=== PATIENT | male | born 1950 | race Caucasian/White ===

== ENCOUNTER 2017-08-25 09:51 | Emergency (ER) | payer OTHER ==
[2017-08-25 10:36] LABS: Absolute Lymphocytes (CBC) 1.9 K/uL (0.7-4.9); Absolute Monocytes 0.8 K/uL (0.1-1.3); Absolute Neutrophil 5.8 K/uL (1.8-8.0); Basophils % 0.6 % (0-1.3); Eosinophils % 2.3 % (0-4.4); Hematocrit 42.3 % (39.6-49.0); Lymphocytes % 21.9 % (15.3-44.8); MCH 32.9 pg (27.0-35.0); MPV 7.6 fL (7.6-11.3); Monocytes % 8.6 % (3.3-12.3)
[2017-08-25 10:39] LABS: Protime INR 0.97
[2017-08-25 10:46] LABS: Bicarbonate 25 mEq/L (21-31); Glucose Level 113 mg/dL (65-120); Potassium 4.3 mEq/L (3.6-5.0); Sodium Level 137 mEq/L (135-145)
[2017-08-25 10:52] LABS: ALT/SGPT 27 IU/L (10-60); AST/SGOT 32 IU/L (10-42); Alkaline Phosphatase 75 IU/L (42-121); BUN Blood Urea Nitrogen 13 mg/dL (6-20); Bilirubin Direct 0.2 mg/dL (0-0.2); Bilirubin Total 1.5 mg/dL (0.3-1.2); Creatine Phosphokinase 306 IU/L (22-269); Glomerular Filtration Rate > 90 mL/min (=/>90); Protein, Total 7.7 g/dL (6.0-8.3)
--- NOTE | 2017-08-25 10:52 | RAD REPORT ---
EXAM DESCRIPTION: RAD - Chest Single View - 08/25/2017 10:33 am CLINICAL HISTORY: Chest pain, chest pressure COMPARISON: None. TECHNIQUE: AP portable chest image was obtained 1029 hours . FINDINGS: Lungs are underinflated. Patient has a mild prominence of the interstitial markings suspec yair to be baseline. No failure, volume overload or pulmonary edema pattern. A focal infiltrate or mas s not seen. Trachea is midline. Heart and vasculature are normal. No measurable pleural effusion and no pneumothorax. Left shoulder degenerative changes are present. No gross abnormality seen on limited bony assessment. No acute aortic findings suspected. IMPRESSION: No pulmonary edema, infiltrate or other acute cardiopulmonary finding.
[2017-08-25 10:54] LABS: CKMB Creatine Kinase MB 4.8 ng/ml (0.3-4.0)
[2017-08-25] MEDS ORDERED: MORPHINE 4 MG/ML SYR ONE (11:19)
[2017-08-25] MEDS ORDERED: NA CHLORIDE 0.9% 1,000 ML ONE (11:19)
[2017-08-25] MEDS ORDERED: ONDANSETRON 4 MG/2 ML VIAL ONE (11:19)
[2017-08-25] MEDS ORDERED: HYDRALAZINE HCL 20 MG/ML VIAL ONE (11:19)
[2017-08-25 13:35] LABS: CKMB Creatine Kinase MB 4.5 ng/ml (0.3-4.0)
--- NOTE | 2017-08-25 13:43 | ER ---
Nurse's Notes [facility] Name: Luís Smith Age: 66 yrs Sex: Male : 1950 Arrival Date: 08/25/2017 Time: 09:55 Bed 16 Private MD: Diagnosis: Chest pain, unspecified;Essential (primary) hypertension Presentation: 08/25 09:55 Presenting complaint: EMS states: was called at [facility] for a pt with complaints of hj chest pain, pressure, heavy pain 7/10 for 2 days; denies SOB; denies radiating pain; BP- 197/128; BG- 102; EMS gave aspirin 81 mg x 4; nitro x 2 last dose was 9:40am; A\T\Ox4;. Transition of care: patient was received from another setting of care (ambulatory primary care physician practice), from [facility];. Onset of symptoms was August 25, 2017. Care prior to arrival: None. 09:55 Method Of Arrival: EMS: [facility] hj 09:55 Acuity: CLARISSA 3 hj 10:04 Note after 2 doses of nitro BP- 182/100; pain 4/10. hj Triage Assessment: 10:00 General: Appears in no apparent distress. uncomfortable, Behavior is calm, cooperative, hj appropriate for age. Pain: Complains of pain in chest. Cardiovascular: Reports chest pain, Heart tones S1 S2 present Capillary refill < 3 seconds Patient's skin is warm and dry. Historical: - Allergies: 10:00 No Known Allergies; hj - Home Meds: 10:00 losartan 100 mg oral tab 1 tab once daily [Active]; fluoxetine 20 mg Oral cap 1 cap hj once daily [Active]; - PMHx: 10:00 Depression; Hypertension; Hyperlipidemia; BPH; hj - PSHx: 10:00 neck; back; arm; hj - Immunization history:: Adult Immunizations not up to date. - Social history:: Smoking status: Patient uses tobacco products, Patient/guardian denies using alcohol. - Family history:: not pertinent. - Hospitalizations: : No recent hospitalization is reported. - History obtained from: EMS. Screenin:00 Abuse screen: Denies threats or abuse. Denies injuries from another. Nutritional hj screening: No deficits noted. Tuberculosis screening: No symptoms or risk factors identified. Fall Risk None identified. Assessment: 10:02 Pain: Pain does not radiate. Pain began 1 day ago. hj 10:12 General: Appears in no apparent distress. uncomfortable, Behavior is calm, cooperative, aj1 appropriate for age. Pain: Complains of pain in anterior aspect of left upper chest Pain does not radiate. Pain currently is 5 out of 10 on a pain scale. Quality of pain is described as pressure, Pain began 1 day ago. Is continuous. Neuro: Level of Consciousness is awake, alert, obeys commands, Oriented to person, place, time, situation, Speech is normal, Facial symmetry appears normal. Cardiovascular: Reports chest pain, fatigue, shortness of breath, Denies diaphoresis, lightheadedness, nausea, palpitations, syncope, vomiting, Heart tones S1 S2 present Patient's skin is warm and dry. Rhythm is regular Chest pain is described as Pain is 5 out of 10 on a pain scale. quality is pressure, is located in left anterior chest wall began 1 day ago. Respiratory: Reports shortness of breath Airway is patent Respiratory effort is even, unlabored, Respiratory pattern is regular, symmetrical, Breath sounds are clear bilaterally. GI: No signs and/or symptoms were reported involving the gastrointestinal system. : No signs and/or symptoms were reported regarding the genitourinary system. EENT: No signs and/or symptoms were reported regarding the EENT system. Derm: No signs and/or symptoms reported regarding the dermatologic system. Skin is pink, warm \T\ dry. normal. Musculoskeletal: No signs and/or symptoms reported regarding the musculoskeletal system. Circulation, motion, and sensation intact. 11:22 Reassessment: Patient appears in no apparent distress at this time. No changes from aj1 previously documented assessment. Patient and/or family updated on plan of care and expected duration. Pain level reassessed. Patient is alert, oriented x 3, equal unlabored respirations, skin warm/dry/pink. 12:00 Reassessment: Patient and/or family updated on plan of care and expected duration. Pain aj1 level reassessed. General: Appears in no apparent distress. comfortable, Behavior is calm, cooperative, appropriate for age. Neuro: Level of Consciousness is awake, alert, obeys commands, Oriented to person, place, time, situation, Speech is normal, Facial symmetry appears normal. Cardiovascular: Heart tones S1 S2 present Patient's skin is warm and dry. Rhythm is regular. Respiratory: Airway is patent Respiratory effort is even, unlabored, Respiratory pattern is regular, symmetrical. Derm: Skin is pink, warm \T\ dry. normal. Musculoskeletal: Circulation, motion, and sensation intact. 13:09 Reassessment: Patient appears in no apparent distress at this time. No changes from aj1 previously documented assessment. Patient and/or family updated on plan of care and expected duration. Pain level reassessed. Patient is alert, oriented x 3, equal unlabored respirations, skin warm/dry/pink. 14:21 Reassessment: Patient appears in no apparent distress at this time. No changes from aj1 previously documented assessment. Patient and/or family updated on plan of care and expected duration. Pain level reassessed. Patient is alert, oriented x 3, equal unlabored respirations, skin warm/dry/pink. Vital Signs: 10:03 BP 185 / 113; Pulse 81; Resp 18; Temp 98.1(TE); Pulse Ox 97% on R/A; Weight 92.53 kg; hj Height 6 ft. 0 in. (182.88 cm); Pain 4/10; 11:21 BP 165 / 85; Pulse 78; Resp 18; Pulse Ox 96% on R/A; aj1 12:00 BP 159 / 85; Pulse 79; Resp 13; Pulse Ox 97% ; aj1 13:09 BP 162 / 88; Pulse 79; Resp 14; Pulse Ox 98% ; aj1 14:22 BP 158 / 89; Pulse 82; Resp 18; Pulse Ox 99% ; aj1 10:03 Body Mass Index 27.67 (92.53 kg, 182.88 cm) ED Course: 09:55 Patient arrived in ED. hj 09:57 Triage completed. hj 10:01 Nani Hernandez FNP is PHCP. kav 10:01 Gino Bullard MD is Attending Physician. kav 10:02 Arm band placed on right wrist. hj 10:02 Patient has correct armband on for positive identification. Placed in gown. Bed in low hj position. Call light in reach. Side rails up X 1. 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 Pulse ox on. NIBP on. 10:03 Patient maintains SpO2 saturation greater than 95% on room air. hj 10:10 Rosie Pollock RN is Primary Nurse. aj1 10:12 No provider procedures requiring assistance completed. Initial lab(s) drawn, by oh, aj1 sent to lab. EKG done, by eeg technician. Inserted saline lock: 20 gauge in right forearm, using aseptic technique. Blood collected. 10:15 IV EMS IV 20 g to right wrist, flushed with NS IV infiltrated, IV dc'd pressure held to aj1 site and then site covered with 4x4 and secured with tape. Catheter intact, patient tolerated well. 11:58 EKG done, by eeg technician. reviewed by Gino Bullard MD. tc 13:41 Shan Taveras MD is Referral Physician. kav 14:22 IV discontinued, intact, bleeding controlled, No redness/swelling at site. Pressure aj1 dressing applied. Administered Medications: 11:12 Drug: hydrALAZINE 10 mg {Note: BP prior to administration 175/103.} Route: IV; Rate: aj1 bolus; Site: right forearm; 14:23 Follow up: IV Status: Completed infusion aj1 11:13 Drug: morphine 4 mg Route: IVP; Site: right forearm; aj1 14:24 Follow up: Response: No adverse reaction aj1 11:13 Drug: Zofran 4 mg Route: IVP; Site: right forearm; aj1 14:24 Follow up: Response: No adverse reaction aj1 11:14 Drug: NS 0.9% 1000 ml Route: IV; Rate: 1 bolus; Site: right forearm; aj1 14:24 Follow up: IV Status: Completed infusion; IV Intake: 1000ml aj1 Intake: 14:24 IV: 1000ml; Total: 1000ml. aj1 Outcome: 13:42 Discharge ordered by . kav 14:22 Discharged to home ambulatory. aj1 14:22 Condition: good 14:22 Discharge instructions given to patient, Instructed on discharge instructions, follow up and referral plans. medication usage, Demonstrated understanding of instructions, follow-up care, medications, Prescriptions given X 1. 14:25 Patient left the ED. aj1 Signatures: Rosie Pollock, RN RN aj1 Nani Hernandez, NEMATOLOGIST NEMATOLOGIST Ruth Ann Morales, media intern EKG Ttc Amando Vidal, RN RN hj
--- NOTE | 2017-08-25 13:43 | EDPHYS ---
Physician Documentation [facility] Name: Luís Smith Age: 66 yrs Sex: Male : 1950 Arrival Date: 08/25/2017 Time: 09:55 Bed 16 Private MD: ED Physician Gino Tovar HPI: 08/25 10:39 This 66 yrs old Male presents to ER via EMS with complaints of Chest Pain. kav 10:39 Onset: The symptoms/episode began/occurred acutely, just prior to arrival, 1 day(s) kav ago, and became worse just prior to arrival. Modifying factors: The patient symptoms are alleviated by nothing, the patient symptoms are aggravated by nothing. The patient has not experienced similar symptoms in the past. The patient has not recently seen a physician. patient reports that chest pain began yesterday 08/24/17. reports pain as a "..heavy, constant pressure". chest pain rated at 6/10. pain radiates behind left shoulder. chest pain began with activity. denies n/v/d, dizziness/vertigo, headache. former smoker. pmhx: htn with rx losartan 100 mg po bid. reports that his blood pressure medicine was increased approximately 4 weeks ago from 50 mg q day to 100 mg q day.. 10:48 The patient or guardian reports chest pain that is located primarily in the anterior kav aspect of left upper chest and left breast. Onset: acutely, 1 day(s) ago. The pain radiates to the left shoulder. Associated signs and symptoms: Pertinent positives: None. Pertinent negatives: abdominal pain, cough, diaphoresis, dizziness, headache, lower extremity pain, lower extremity swelling, lightheadedness, nausea, near syncope, palpitations, recent travel, shortness of breath, syncope, vomiting. The chest pain is described as a pressure. Duration: The patient or guardian reports multiple episodes, that are intermittent, with no pattern. Modifying factors: The symptoms are alleviated by nothing. the symptoms are aggravated by nothing. Severity of pain: At its worst the pain was severe 1 day(s) ago. Historical: - Allergies: 10:00 No Known Allergies; hj - Home Meds: 10:00 losartan 100 mg oral tab 1 tab once daily [Active]; fluoxetine 20 mg Oral cap 1 cap hj once daily [Active]; - PMHx: 10:00 Depression; Hypertension; Hyperlipidemia; BPH; hj - PSHx: 10:00 neck; back; arm; hj - Immunization history:: Adult Immunizations not up to date. - Social history:: Smoking status: Patient uses tobacco products, Patient/guardian denies using alcohol. - Family history:: not pertinent. - Hospitalizations: : No recent hospitalization is reported. - History obtained from: EMS. ROS: 10:48 Constitutional: Negative for fever, chills, and weight loss, Eyes: Negative for injury, kav pain, redness, and discharge, ENT: Negative for injury, pain, and discharge, Neck: Negative for injury, pain, and swelling, Respiratory: Negative for shortness of breath, cough, wheezing, and pleuritic chest pain, Abdomen/GI: Negative for abdominal pain, nausea, vomiting, diarrhea, and constipation, Back: Negative for injury and pain, : Negative for injury, bleeding, discharge, and swelling, MS/Extremity: Negative for injury and deformity, Skin: Negative for injury, rash, and discoloration, Neuro: Negative for headache, weakness, numbness, tingling, and seizure, Psych: Negative for depression, anxiety, suicide ideation, homicidal ideation, and hallucinations, Allergy/Immunology: Negative for hives, rash, and allergies, Endocrine: Negative for neck swelling, polydipsia, polyuria, polyphagia, and marked weight changes, Hematologic/Lymphatic: Negative for swollen nodes, abnormal bleeding, and unusual bruising. 10:48 Cardiovascular: Positive for chest pain, of the anterior aspect of left upper chest and left nipple, Negative for edema, orthopnea, palpitations, paroxysmal nocturnal dyspnea, acute changes. Exam: 10:48 Constitutional: This is a well developed, well nourished patient who is awake, alert, kav and in no acute distress. Head/Face: Normocephalic, atraumatic. Eyes: Pupils equal round and reactive to light, extra-ocular motions intact. Lids and lashes normal. Conjunctiva and sclera are non-icteric and not injected. Cornea within normal limits. Periorbital areas with no swelling, redness, or edema. ENT: Nares patent. No nasal discharge, no septal abnormalities noted. Tympanic membranes are normal and external auditory canals are clear. Oropharynx with no redness, swelling, or masses, exudates, or evidence of obstruction, uvula midline. Mucous membranes moist. Neck: Trachea midline, no thyromegaly or masses palpated, and no cervical lymphadenopathy. Supple, full range of motion without nuchal rigidity, or vertebral point tenderness. No Meningismus. Chest/axilla: Normal chest wall appearance and motion. Nontender with no deformity. No lesions are appreciated. Respiratory: Lungs have equal breath sounds bilaterally, clear to auscultation and percussion. No rales, rhonchi or wheezes noted. No increased work of breathing, no retractions or nasal flaring. Abdomen/GI: Soft, non-tender, with normal bowel sounds. No distension or tympany. No guarding or rebound. No evidence of tenderness throughout. Back: No spinal tenderness. No costovertebral tenderness. Full range of motion. Skin: Warm, dry with normal turgor. Normal color with no rashes, no lesions, and no evidence of cellulitis. MS/ Extremity: Pulses equal, no cyanosis. Neurovascular intact. Full, normal range of motion. Neuro: Awake and alert, GCS 15, oriented to person, place, time, and situation. Cranial nerves II-XII grossly intact. Motor strength 5/5 in all extremities. Sensory grossly intact. Cerebellar exam normal. Normal gait. Psych: Awake, alert, with orientation to person, place and time. Behavior, mood, and affect are within normal limits. 10:48 Cardiovascular: Rate: actual rate is 76 bpm, Rhythm: regular, Pulses: Pulses are 2+ in . Heart sounds: S1, S2, normal, Edema: is not appreciated, JVD: is not appreciated. 10:48 ECG was reviewed by the Attending Physician. Vital Signs: 10:03 BP 185 / 113; Pulse 81; Resp 18; Temp 98.1(TE); Pulse Ox 97% on R/A; Weight 92.53 kg; hj Height 6 ft. 0 in. (182.88 cm); Pain 4/10; 11:21 BP 165 / 85; Pulse 78; Resp 18; Pulse Ox 96% on R/A; aj1 12:00 BP 159 / 85; Pulse 79; Resp 13; Pulse Ox 97% ; aj1 13:09 BP 162 / 88; Pulse 79; Resp 14; Pulse Ox 98% ; aj1 14:22 BP 158 / 89; Pulse 82; Resp 18; Pulse Ox 99% ; aj1 10:03 Body Mass Index 27.67 (92.53 kg, 182.88 cm) hj MDM: 10:16 Patient medically screened. kav 10:48 The patient's pulmonary embolism risk score was calculated as follows: No Risks (0 kav Pts). Data reviewed: vital signs, nurses notes. 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 Test interpretation: by ED physician or midlevel provider: ECG. 12:20 EFFIE Risk Score: 1 - patient's age is greater or equal to 65 years, 1 - Recent [<24hrs] kav Severe Angina, TOTAL SCORE = 2. ED course: reviewed cardiac enzymes and ekg with dr. tovar. advised repeat cardiac enzymes x 1 set \\T\\ 2 hour lukasz and reassess. 13:41 ED course: repeat troponin in < 0.30. count includes the [facility] 08/25 10:10 Order name: Basic Metabolic Panel 08/25 10:10 Order name: BNP 08/25 10:10 Order name: CBC with Diff 08/25 10:10 Order name: Ckmb 08/25 10:10 Order name: CPK 08/25 10:10 Order name: LFT's 08/25 10:10 Order name: Magnesium 08/25 10:10 Order name: PT-INR 08/25 10:10 Order name: Ptt, Activated 08/25 10:10 Order name: Troponin (emerg Dept Use Only) 08/25 10:15 Order name: Basic Metabolic Panel count includes the [facility] 08/25 10:15 Order name: BNP 08/25 10:15 Order name: CBC with Diff 08/25 10:15 Order name: Ckmb 08/25 10:15 Order name: CPK 08/25 10:15 Order name: LFT's 08/25 10:15 Order name: Magnesium 08/25 10:15 Order name: PT-INR 08/25 10:15 Order name: Ptt, Activated 08/25 10:15 Order name: Troponin (emerg Dept Use Only) count includes the [facility] 08/25 10:46 Order name: Basic Metabolic Panel; Complete Time: 11:57 EDMS 08/25 11:57 Interpretation: Within normal limits. 08/25 10:46 Order name: CBC with Automated Diff; Complete Time: 11:57 EDMS 08/25 11:57 Interpretation: Within normal limits. 08/25 10:46 Order name: Protime (+INR); Complete Time: 11:58 EDMS 08/25 11:58 Interpretation: Within normal limits. 08/25 10:46 Order name: PTT, Activated Partial Thromb; Complete Time: 11:58 EDMS 08/25 11:58 Interpretation: Within normal limits. 08/25 10:52 Order name: Troponin (Emerg Dept Use Only); Complete Time: 11:58 EDMS 08/25 11:58 Interpretation: Within normal limits. 08/25 10:52 Order name: Liver (Hepatic) Function; Complete Time: 11:57 EDMS 08/25 11:57 Interpretation: Normal except: BILIT 1.5; GLOB 3.7. 08/25 10:52 Order name: Creatine Phosphokinase; Complete Time: 11:57 EDMS 08/25 11:57 Interpretation: Abnormal: CPK 306. 08/25 10:52 Order name: Magnesium; Complete Time: 11:58 EDMS 08/25 11:58 Interpretation: Within normal limits. 08/25 10:55 Order name: CKMB Creatine Kinase MB; Complete Time: 11:57 EDMS 08/25 11:57 Interpretation: Abnormal: CKMB 4.8. 08/25 10:55 Order name: BNP B-Type Natriuretic Peptide; Complete Time: 11:56 ED08/25 11:57 Interpretation: Abnormal: BNP 133. 08/25 10:10 Order name: XRAY Chest (1 view) 08/25 10:10 Order name: EKG; Complete Time: 10:11 08/25 10:10 Order name: Cardiac monitoring; Complete Time: 10:11 08/25 10:10 Order name: EKG - Nurse/Tech; Complete Time: 10:11 08/25 10:10 Order name: IV Saline Lock; Complete Time: 10:11 08/25 10:10 Order name: Labs collected and sent; Complete Time: 10:11 08/25 10:10 Order name: O2 Per Protocol; Complete Time: 10:11 08/25 10:10 Order name: O2 Sat Monitoring; Complete Time: 10:11 [facility] 08/25 10:15 Order name: XRAY Chest (1 view) count includes the [facility] 08/25 10:15 Order name: EKG; Complete Time: 10:16 count includes the [facility] 08/25 10:15 Order name: Cardiac monitoring; Complete Time: : count includes the [facility] 08/25 10:15 Order name: EKG - Nurse/Tech; Complete Time: : count includes the [facility] 08/25 10:15 Order name: IV Saline Lock; Complete Time: : count includes the [facility] 08/25 10:15 Order name: Labs collected and sent; Complete Time: : count includes the [facility] 08/25 10:15 Order name: O2 Per Protocol; Complete Time: : count includes the [facility] 08/25 10:15 Order name: O2 Sat Monitoring; Complete Time: count includes the [facility] 08/25 10:53 Order name: RAD; Complete Time: 11:58 EDVA 08/25 11:58 Interpretation: No acute disease. count includes the [facility] 08/25 12:25 Order name: Ckmb: repeat ckmb \\T\\ 1300 count includes the [facility] 08/25 12:25 Order name: CK: draw repeat ck \\T\\ 1300 count includes the [facility] 08/25 12:25 Order name: Troponin (emerg Dept Use Only): draw repeat trop at 1300 count includes the [facility] 08/25 13:28 Order name: Creatine Phosphokinase; Complete Time: 13:40 EDMS 08/25 13:40 Interpretation: Abnormal. count includes the [facility] 08/25 13:32 Order name: Troponin (Emerg Dept Use Only); Complete Time: 13:40 EDMS 08/25 13:40 Interpretation: Within normal limits. count includes the [facility] 08/25 13:35 Order name: CKMB Creatine Kinase MB; Complete Time: 13:40 EDMS 08/25 13:40 Interpretation: Abnormal. count includes the [facility] EC:48 Rate is 76 beats/min. Rhythm is regular. QRS [place] is Normal. [place] interval is normal. QRS kav interval is normal. QT interval is normal. No Q waves. T waves are Normal. No ST changes noted. Administered Medications: 11:12 Drug: hydrALAZINE 10 mg {Note: BP prior to administration 175/103.} Route: IV; Rate: aj1 bolus; Site: right forearm; 14:23 Follow up: IV Status: Completed infusion aj1 11:13 Drug: morphine 4 mg Route: IVP; Site: right forearm; aj1 14:24 Follow up: Response: No adverse reaction aj1 11:13 Drug: Zofran 4 mg Route: IVP; Site: right forearm; aj1 14:24 Follow up: Response: No adverse reaction aj1 11:14 Drug: NS 0.9% 1000 ml Route: IV; Rate: 1 bolus; Site: right forearm; aj1 14:24 Follow up: IV Status: Completed infusion; IV Intake: 1000ml aj Disposition: 21:38 Co-signature as Attending Physician, Gino Tovar MD. kdr Disposition: 08/25/17 13:42 Discharged to Home. Impression: Chest pain, unspecified, Essential (primary) hypertension. - Condition is Stable. - Discharge Instructions: Nonspecific Chest Pain, Hypertension, [id number], How to Take Your Blood Pressure, [id number], DASH Eating Plan, Managing Your High Blood Pressure. - Prescriptions for Nitrostat 0.4 mg Sublingual Tablet, Sublingual - place 1 tablet by SUBLINGUAL route one time As needed - at the first sign of an attack; no more than 3 tablets are recommended within a 15 minute period.; 25 tablet. - Medication Reconciliation Form, Thank You Letter, Antibiotic Education, Prescription Opioid Use form. - Follow up: Shan Taveras MD; When: 2 - 3 days; Reason: Recheck today's complaints, Continuance of care, Re-evaluation by your physician. - Problem is new. - Symptoms have improved. - Notes: please follow-up with your pcp and with cardiology for post-ED evaluation and treatment return to ED if symptoms return Signatures: Dispatcher [employer] EDRosie Winn, RN RN aj1 Gino Tovar MD MD kdr Vern, Katherine, RN TRANSITIONAL RN TRANSITIONAL Amando Hough RN RN hj
--- NOTE | 2017-08-25 16:49 | EKG ---
Test Date: 2017-08-25 Test Time: 09:55:02 Motion Picture Projectionist Apprentice: SUZETTE MEASUREMENT RESULTS: Intervals: Rate: 79 AK: 158 QRSD: 150 QT: 430 QTc: 493 [place]: P: 36 AK: 158 QRS: -50 T: 87 INTERPRETIVE STATEMENTS: Normal sinus rhythm Left axis deviation Left bundle branch block Abnormal ECG No previous ECG available for comparison Electronically Signed On 08-25-17 16:48:23 CDT by Alphonse Patel
== END 2017-08-25 14:25 | disposition home or self-care (01) ==
LOC: ER 09:51
DX: I10 Essential (primary) hypertension (principal); E78.5 Hyperlipidemia, unspecified; F32.9 Major depressive disorder, single episode, unspecified; Z72.0 Tobacco use
CPT/HCPCS: 36415; 71045; 80048; 80076; 82550; 82553; 83735; 83880; 84484; 85025; 85610; 85730; 93005; 96365; 96366; 96375; 99285; J0360; J2405; J7030